=== PATIENT | male | born 1980 | race Caucasian/White ===

== ENCOUNTER 2019-10-04 13:19 | Emergency (ER) | payer OTHER ==
--- OUTSIDE RECORDS SUMMARY | 2019-10-04 13:22 | XMS REPORT | Encounter Summary ---
:1980 Author Reason for Visit problem visit Instructions 1. Atypical chest pain isosorbide mononitrate ER 30 mg tablet,extended release 24 hr cardiology referral - Patient is scheduled for today. CMP, serum or plasma CBC w/ auto diff lipid panel, serum TSH + free T4, serum electrocardiogram interpretation 2. Gastro-esophageal reflux disease with esophagitis omeprazole 40 mg capsule,delayed release Discussion Note Patient has a family history of coronary arterial disease and male one close relative that at the age of 60 from massive myocardial infarction. This patient does have symptoms of esophageal reflux along with the chest pain that can be with exertion or without. Especially noted hiking this past weekend patient had post sternal chest pain. For his reflux he takes [id number]-[id number] medications. A EKG today shows Q waves in 2 and aVF and also shows a slight fascicular block in 2 and aVF as well. Patient has never had a coronary work-up. He does have a history of hypertension that is been marginally controlled. The heart auscultation appeared normal, but because of these changes in his family history I would like him to have a cardiac work-up with Dr. Dinesh Parks. Patient educational handouts: No information available. Plan of Care Reminders Provider Appointments Hyg 6 Month Aure [facility] Recall 01/09/2020 4:00PM Lab CMP, Serum or [facility] Plasma 2019 CBC W/ Auto [facility] Diff 2019 Lipid Panel, [facility] Serum 2019 TSH + Free T4, [facility] Serum 2019 Referral Cardiology Dinesh Parks MD Referral 08/06/2019 Procedures None recorded. Surgeries None recorded. Imaging None recorded. Medications Name Start Date atorvastatin 20 mg tablet TAKE 1 TABLET BY ORAL ROUTE 1 DAILY Benicar 20 mg tablet Take 1 tablet every day by oral route. Bystolic 10 mg tablet Take 1 tablet every day by oral route. omeprazole 40 mg capsule,delayed release Take 1 capsule every day by oral route. Medications Administered None recorded. Vitals Height Weight BMI Blood Pressure 6 ft 1 in 293 lbs 38.7 kg/m2 136/78 mm[Hg] Lab Results None recorded. Allergies Code Code System Name Reaction Severity Status Onset NKDA Problems Name Status Onset Date Source Hyperlipidemia Active 04/18/2019 Hypertensive Disorder Active Procedures None recorded. Vaccine List Vaccine Type influenza, injectable, quadrivalent 06/06/2018 Social History Tobacco Smoking Status Never Smoker Past Encounters 08/06/2019 Atypical Chest Pain; Gastro-esophageal Reflux Disease with Esophagitis MARIA E Tinajero: [address], [place] [address], Ph. [phone] History of Present Illness Note: <p>This is a 8-year old male that presents with episodes of chest fullness and discomfort.. He has male family member that at age 60 from a myocardial infarction patient does have a hypertension hyperlipidemia. He has thought that this has been primarily reflux symptoms and has been taking dwpk-gsl-gchlcgb medicines for reflux. It is episodic it is not necessarily associated with activity although he was doing some hiking this past weekend and started having some chest discomfort.An EKG was taken during his exam today. The patient points directly to the mid sternal region as the area of his discomfort.
</p> Review of Systems None recorded. Physical Exam Brief Cardiology Exam Reported By: Patient Basic Cardio PE: General Appearance in NAD, normal general appearance, healthy weight, alert. HEENT: normal thyroid, no bruit, JVP < 6. Lungs: clear to auscultation. Cardio: s1 normal, s2 normal, no murmurs, no gallops, normal apical impulse. Extremities: no edema. Neurologic: no visual disturbances, no weakness in the extremities, no confusion
--- OUTSIDE RECORDS SUMMARY | 2019-10-04 13:22 | XMS REPORT | Encounter Summary ---
:1980 Author Reason for Visit None recorded. Instructions 1. Atypical chest pain isosorbide mononitrate ER 30 mg tablet,extended release 24 hr cardiology referral CMP, serum or plasma CBC w/ auto [...] chest pain. For his reflux he takes [id number]-[id number] medications. A EKG today shows Q waves [...] Provider Appointments Hyg 6 Month Aure [facility] Recall 01/09/2020 4:00PM Lab CMP, Serum or [facility] Plasma 08/06/2019 CBC W/ Auto [facility] Diff 08/06/2019 Lipid Panel, [facility] Serum 08/06/2019 TSH + Free T4, [facility] Serum 08/06/2019 Referral Cardiology Dinesh Parks MD Referral 08/06/2019 Procedures None recorded. Surgeries None recorded. Imaging None recorded. Medications Name Start Date atorvastatin 20 mg tablet TAKE 1 TABLET BY ORAL ROUTE 1 DAILY Benicar 20 mg tablet Take 1 tablet every day by oral route. isosorbide mononitrate ER 30 mg tablet,extended release 24 hr Take 1 tablet every day by oral route. omeprazole 40 mg capsule,delayed release Take 1 capsule every day by oral route. Medications Administered None recorded. Vitals None recorded. Lab Results None recorded. Allergies Code Code System Name Reaction Severity Status Onset NKDA Problems Name Status Onset Date Source Hyperlipidemia Active 04/18/2019 Hypertensive Disorder Active Procedures None recorded. Vaccine List Vaccine Type influenza, injectable, quadrivalent 06/06/2018 Social History Tobacco Smoking Status Never Smoker Past Encounters 08/06/2019 Atypical Chest Pain; Gastro-esophageal Reflux Disease with Esophagitis MARIA E Tinajero: [address], [place] [address], Ph. History of Present Illness Note: <p>This is a 8-year old male that presents with episodes of chest fullness and discomfort.. He has male family member that at age 60 from a myocardial infarction patient does have a hypertension hyperlipidemia. He has thought that this has been primarily reflux symptoms and has been taking qaif-vgr-jctwnfi medicines for reflux. It is episodic it [...]
--- OUTSIDE RECORDS SUMMARY | 2019-10-04 13:22 | XMS REPORT ---
:1980 [facility] Address [address] [place] [address] Care Team Providers Name Role Phone Unavailable Unavailable Unavailable Problems This patient has no known problems. Allergies, Adverse Reactions, Alerts This patient has no known allergies or adverse reactions. Medications This patient has no known medications. Encounters Start End Encounter Admission Attending Care Care Encounter Date/Time Date/Time Type Type Clinicians Facility Department ID 2019-09-17 Inpatient [facility] [id number] 05:20:00
[2019-10-04] MEDS ORDERED: Mastisol Adhesive Liq ONE (15:01)
--- NOTE | 2019-10-04 15:51 | ER ---
Nurse's Notes [facility] Name: Jenaro Singh Age: 39 yrs Sex: Male : 1980 Arrival Date: 10/04/2019 Time: 13:23 Bed 20 Private MD: Diagnosis: Persistent and recurrent bleeding from the superior aspect of sternal incision - resolved Presentation: 10/04 13:57 Presenting complaint: Had bicuspid valve replacement 09/17 at [facility], discharged 2 days hb ago, reports incision bleeding since yesterday. . Transition of care: patient was not received from another setting of care. Onset of symptoms was October 03, 2019. Risk Assessment: Do you want to hurt yourself or someone else? Patient reports no desire to harm self or others. Initial Sepsis Screen: Does the patient meet any 2 criteria? No. Patient's initial sepsis screen is negative. Does the patient have a suspected source of infection? No. Patient's initial sepsis screen is negative. Care prior to arrival: None. 13:57 Method Of Arrival: Ambulatory hb 13:57 Acuity: MIKE 3 hb Historical: - Allergies: 14:02 No Known Allergies; hb - Home Meds: 14:02 Coumadin 5 mg Oral tab 1 tab once daily [Active]; Zyrtec 10 mg Oral chew 1 tab once hb daily [Active]; aspirin 81 mg Oral chew 1 tab once daily [Active]; colchicine 0.6 mg Oral cap 1 cap once daily [Active]; atorvastatin 40 mg oral tab 1 tab once daily [Active]; enoxaparin 120 mg/0.8 mL subcutaneous syrg once daily [Active]; gabapentin 100 mg oral cap [Active]; metoprolol tartrate 50 mg Oral tab 1 tab 2 times per day [Active]; omeprazole 40 mg Oral cpDR 1 cap once daily [Active]; tramadol 50 mg Oral tab [Active]; - PMHx: 14:02 Hypertension; hb - PSHx: 14:02 Bicuspid Valve Replacement; hb - Immunization history:: Adult Immunizations up to date. - Social history:: Smoking status: Patient/guardian denies using tobacco. - Ebola Screening: : No symptoms or risks identified at this time. Screenin:21 Abuse screen: Denies threats or abuse. Nutritional screening: No deficits noted. em Tuberculosis screening: No symptoms or risk factors identified. Fall Risk None identified. Assessment: 14:22 General: Appears in no apparent distress. comfortable, Behavior is calm, cooperative, em Denies fever. Pain: Denies pain. Neuro: Level of Consciousness is awake, alert, obeys commands, Oriented to person, place, time, situation, Appropriate for age. Cardiovascular: Denies chest pain, palpitations, shortness of breath, Heart tones S1 S2 present Capillary refill < 3 seconds Patient's skin is warm and dry. Edema is absent. Respiratory: Airway is patent Respiratory effort is even, unlabored, Respiratory pattern is regular, symmetrical, Denies shortness of breath pain with respiration. Derm: Wound noted mid-sternal area Wound is surgical site wound, bloody drainage noted. Musculoskeletal: Capillary refill < 3 seconds, Range of motion: intact in all extremities. 14:30 Reassessment: I agree with previous assessment. hb 14:35 Reassessment: removed liquid bandage off incision site, small amount of bloody em drainage, provider notified, placed surgiseal with tape on site. 15:45 Reassessment: Patient appears in no apparent distress at this time. Patient and/or em family updated on plan of care and expected duration. Pain level reassessed. Patient is alert, oriented x 3, equal unlabored respirations, skin warm/dry/pink. applied Mastisol to skin, taped surgiseal with a 2 x 2 on incision per providers orders, no drainage noted. Vital Signs: 14:02 BP 134 / 87; Pulse 91; Resp 16; Temp 97.4; Pulse Ox 98% on R/A; Weight 122.92 kg; hb Height 6 ft. 2 in. (187.96 cm); Pain 1/; 14:02 Body Mass Index 34.79 (122.92 kg, 187.96 cm) hb ED Course: 13:23 Patient arrived in ED. cl3 13:59 Triage completed. hb 14:02 Arm band placed on. hb 14:05 Yang Glass LVN is Primary Nurse. em 14:07 Andrea Zhao MD is Attending Physician. kdr 14:21 Patient has correct armband on for positive identification. Placed in gown. Bed in low em position. Call light in reach. Adult w/ patient. 15:58 No provider procedures requiring assistance completed. Patient did not have IV access em during this emergency room visit. Administered Medications: No medications were administered Outcome: 15:49 Discharge ordered by . kdr 15:58 Discharged to home ambulatory, with family. em 15:58 Condition: good 15:58 Discharge instructions given to patient, family, Instructed on discharge instructions, follow up and referral plans. medication usage, wound care, Demonstrated understanding of instructions, follow-up care, medications, wound care. 16:03 Patient left the ED. em Signatures: Andrea Zhao MD MD kdr Yang Glass, SALES REPRESENTATIVE [employer] SALES REPRESENTATIVE [employer] em Brittany Mejia, RN RN Frannie Restrepo cl3
--- NOTE | 2019-10-04 15:51 | EDPHYS ---
Physician Documentation [facility] Name: Jenaro Singh Age: 39 yrs Sex: Male : 1980 Arrival Date: 10/04/2019 Time: 13:23 Bed 20 Private MD: ED Physician Andrea Zhao HPI: 10/04 18:09 This 39 yrs old Male presents to ER via Ambulatory with complaints of Post kdr Surgical Bleeding. 18:09 The patient was discharged from [facility] 2 day [facility] after having chest surgery - now has kdr bleeding to the upper aspect of the incision since yesterday. The patient is staking Plavix, aspiring and Lovenox . Onset: The symptoms/episode began/occurred gradually, yesterday. Severity of symptoms: At their worst the symptoms were very mild mild in the emergency department the symptoms are unchanged. The patient has not experienced similar symptoms in the past. The patient has been recently seen by a physician:. Historical: - Allergies: 14:02 No Known Allergies; hb - Home Meds: 14:02 Coumadin 5 mg Oral tab 1 tab once daily [Active]; Zyrtec 10 mg Oral chew 1 tab once hb daily [Active]; aspirin 81 mg Oral chew 1 tab once daily [Active]; colchicine 0.6 mg Oral cap 1 cap once daily [Active]; atorvastatin 40 mg oral tab 1 tab once daily [Active]; enoxaparin 120 mg/0.8 mL subcutaneous syrg once daily [Active]; gabapentin 100 mg oral cap [Active]; metoprolol tartrate 50 mg Oral tab 1 tab 2 times per day [Active]; omeprazole 40 mg Oral cpDR 1 cap once daily [Active]; tramadol 50 mg Oral tab [Active]; - PMHx: 14:02 Hypertension; hb - PSHx: 14:02 Bicuspid Valve Replacement; hb - Immunization history:: Adult Immunizations up to date. - Social history:: Smoking status: Patient/guardian denies using tobacco. - Ebola Screening: : No symptoms or risks identified at this time. ROS: 18:09 Constitutional: Negative for fever, chills, and weight loss. kdr 18:09 Cardiovascular: Positive for Healing incision that has a slow bleed from the upper 1.5 cm. Exam: 18:09 Constitutional: This is a well developed, well nourished patient who is awake, alert, kdr and in no acute distress. 18:09 Chest/axilla: Inspection: Vertical incision healing well - excepts of a slow dark red blood bleeding from the upper portion of the wound. Vital Signs: 14:02 BP 134 / 87; Pulse 91; Resp 16; Temp 97.4; Pulse Ox 98% on R/A; Weight 122.92 kg; hb Height 6 ft. 2 in. (187.96 cm); Pain /10; 14:02 Body Mass Index 34.79 (122.92 kg, 187.96 cm) hb MDM: 15:49 Patient medically screened. kdr 18:09 Data reviewed: vital signs, nurses notes, lab test result(s). Counseling: I had a kdr detailed discussion with the patient and/or guardian regarding: the historical points, exam findings, and any diagnostic results supporting the discharge/admit diagnosis, lab results, the need for outpatient follow up. Administered Medications: No medications were administered Disposition: 10/04/19 15:49 Discharged to Home. Impression: Persistent and recurrent bleeding from the superior aspect of sternal incision - resolved. - Condition is Stable. - Discharge Instructions: Wound Care. - Medication Reconciliation Form, Thank You Letter form. - Follow up: Private Physician; When: 2 - 3 days; Reason: If symptoms return, Further diagnostic work-up, Recheck today's complaints, Continuance of care, Re-evaluation by your physician. - Problem is an ongoing problem. - Symptoms have improved. Signatures: Andrea Zhao MD MD kdr Yang Glass, PARALLEL COMPUTING SOFTWARE ENGINEER PARALLEL COMPUTING SOFTWARE ENGINEER em Brittany Mejia, [place] RN Corrections: (The following items were deleted from the chart) 16:03 15:49 10/04/2019 15:49 Discharged to Home. Impression: Persistent and recurrent em bleeding from the superior aspect of sternal incision - resolved. Condition is Stable. Forms are Medication Reconciliation Form, Thank You Letter, Antibiotic Education, Prescription Opioid Use. Follow up: Private Physician; When: 2 - 3 days; Reason: If symptoms return, Further diagnostic work-up, Recheck today's complaints, Continuance of care, Re-evaluation by your physician. Problem is an ongoing problem. Symptoms have improved. kdr
[2019-10-04 21:02] VITALS: BP 134/87; TEMP 97.4; O2SAT 98
== END 2019-10-04 16:03 | disposition home or self-care (01) ==
LOC: ER 13:19
DX: L76.22 Postprocedural hemorrhage of skin and subcutaneous tissue following other procedure (principal); I10 Essential (primary) hypertension; Z95.4 Presence of other heart-valve replacement; Z79.01 Long term (current) use of anticoagulants; Z79.82 Long term (current) use of aspirin
CPT/HCPCS: 99281

== ENCOUNTER 2021-03-09 07:14 | Emergency (ER) | payer OTHER ==
--- OUTSIDE RECORDS SUMMARY | 2021-03-09 07:18 | XMS REPORT | Continuity of Care Document ---
:1980 Author Organization [facility] Address [address] [place] [address] Care Team Providers Name Role Phone HARJIT BROCK M.D. Attending Clinician Unavailable Problems Condition Condition Condition Status Onset Resolution Last Treating Co mments Source Name Details Category Date Date Treatment Clinician Date Vitamin D Vitamin D Problem Active 2019-11 [place] deficiency Deficiency 1-11 [facility] Long-term Long-term Problem Active [place] current Current 6-04 da use of Use of 00:00: [facility] anticoagul Anticoagul 00 al ant ant [facility] Outre[facility] Program Occult Occult Problem Active [place] blood in Blood in 4-03 da stools Stools 00:00: [facility] Aortic Aortic Problem Active 2018-11 [place] valve Valve 0-19 da regurgitat Regurgitat 00:00: [facility] ion ion [facility] al [facility] Left Left Problem Active 2018-11 [place] ventricula Ventricula 0-19 da r r 00:00: [facility] hypertroph Hypertroph 00 al y y [facility] Outre[facility] h Program Hyperlipid Hyperlipid Problem Active 2019 [place] emia emia 6-13 da 00:00: [facility] Hypertensi Hypertensi Problem Active [facility] ve ve da disorder Disorder [facility] Aortic Aortic Problem Active Univers insufficie insufficie it y of ncy due to [place] bicuspid bicuspid Physic i aortic aortic ans valve valve Allergies, Adverse Reactions, Alerts This patient has no known allergies or adverse reactions. Family History Family Member Diagnosis Comments Start Date Stop Date Source Grandmother Family history of [facility] [place] myocardial [facility] Ph[facility] uncle Family history of [facility] [place] myocardial infarction [facility] Social History Smoking Status Start Date Stop Date Source Never Smoker Chasity Navarro [facility] Outreach Program Medications Ordered Filled Start Stop Current Ordering Indication Dosage Frequency Signature Comments Components Source Medication Medication Date Date Medication? Clinician (SIG) Name Name Aspcarson Ec Asprin Ec No 1 Q1D Asprin Ec [place] Low Dose 81 Low Dose 81 Low Dose da mg mg 81 mg [facility] tablet,bridgette tablet,bridgette tablet,del al yed release yed release ayed H ealth Take 1 Take 1 release Outreac tablet tablet Take 1 h every day every day tablet Pro gram by oral by oral every day route. route. by oral route. atorvastati atorvastati No atorvastat [place] n 40 mg n 40 mg in 40 mg da tablet TAKE tablet TAKE tablet [facility] 1 TABLET BY 1 TABLET BY TAKE 1 al MOUTH AT MOUTH AT TABLET BY He alth BEDTIME BEDTIME MOUTH AT Outre ac BEDTIME h Program Bystolic 10 Bystolic 10 No Bystolic [place] mg tablet mg tablet 10 mg da TAKE 1/2 TAKE 1/2 tablet [facility] TABLET BY TABLET BY TAKE 1/2 a l MOUTH EVERY MOUTH EVERY TABLET BY Health DAY DAY MOUTH Outreac DIRECTED DIRECTED EVERY DAY h Program DIRECTED olmesartan olmesartan No olmesartan [place] 20 20 20 da mg-hydrochl mg-hydrochl mg-hydroch [facility] orothiazide orothiazide lorothiazi al 12.5 mg 12.5 mg de 12.5 mg Hea lth tablet TAKE tablet TAKE tablet Outreac 1 TABLET BY 1 TABLET BY TAKE 1 h MOUTH EVERY MOUTH EVERY TABLET BY Program DAY DAY MOUTH DIRECTED DIRECTED EVERY DAY DIRECTED Vitamin D3 Vitamin D3 No Vitamin D3 [place] 2000 u qd 2000 u qd 2000 u qd da [facility] warfarin 5 warfarin 5 No warfarin 5 [place] mg tablet mg tablet mg tablet da TAKE 1 TAKE 1 TAKE 1 [facility] TABLET BY TABLET BY TABLET BY al MOUTH TWICE MOUTH TWICE MOUTH Health DAILY DAILY TWICE Outreac DAILY h Program Atorvastati Atorvastati Yes M.A. U nivers n Calcium n Calcium ity o f TABS TABS [place] Physici ans Omeprazole Omeprazole Yes M.A. Uni vers 20 MG Oral 20 MG Oral ity of Capsule Capsule [place] Delayed Delayed Physici Release Release ans Bystolic Bystolic Yes M.A. Univers TABS TABS [facility] [place] Physici ans Benicar HCT Benicar HCT Yes M.A. U nivers TABS TABS [facility] [place] Physici ans Immunizations Ordered Immunization Filled Immunization Date Status Commen ts Source Name Name COVID-19, mRNA, COVID-19, mRNA, 2021-01-08 Completed Colbert erlin LNP-S, PF, 100 LNP-S, PF, 100 13:50:52 [facility] mcg/0.5 mL dose mcg/0.5 mL dose Outr each Program COVID-19, mRNA, COVID-19, mRNA, 2020-12-02 Completed Colbert erlin LNP-S, PF, 100 LNP-S, PF, 100 11:59:28 [facility] mcg/0.5 mL dose mcg/0.5 mL dose Outr each Program influenza, influenza, 2020-07-22 Completed [place] injectable, injectable, 00:00:00 [facility] quadrivalent quadrivalent Outreach P rogram Tdap Tdap 2019-11-28 Completed [place] 16:41:15 [facility] Progr am influenza, influenza, 2019-11-28 Completed [place] injectable, injectable, 15:55:00 [facility] quadrivalent, quadrivalent, Outreach Program preservative free preservative free influenza, influenza, 2018-06-06 Completed [place] injectable, injectable, 00:00:00 [facility] quadrivalent quadrivalent Outreach P rogram Vital Signs Vital Name Observation Time Observation Value Comments Source BP Diastolic 2021-01-21 00:00:00 67 mm[Hg] [place] [facility] Height 2021-01-21 00:00:00 73 [in_i] [place] [facility] BMI (Body Mass 2021-01-21 00:00:00 28.1 kg/m2 [facility] 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) [facility] BP Systolic 2021-01-21 00:00:00 102 mm[Hg] [place] [facility] Body Weight 2021-01-21 00:00:00 3408 [oz_av] [place] [facility] BP Diastolic 2020-10-21 00:00:00 68 mm[Hg] [place] [facility] Height 2020-10-21 00:00:00 73 [in_i] [place] [facility] BMI (Body Mass 2020-10-21 00:00:00 30.6 kg/m2 [place] 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) [facility] BP Systolic 2020-10-21 00:00:00 106 mm[Hg] [place] [facility] Body Weight 2020-10-21 00:00:00 3712 [oz_av] [place] [facility] BP Diastolic 2020-09-16 00:00:00 70 mm[Hg] [place] [facility] Height 2020-09-16 00:00:00 73 [in_i] [place] [facility] BMI (Body Mass 2020-09-16 00:00:00 32.6 kg/m2 [place] 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) [facility] BP Systolic 2020-09-16 00:00:00 109 mm[Hg] [place] [facility] Body Weight 2020-09-16 00:00:00 3952 [oz_av] [place] [facility] BP Diastolic 2020-04-09 00:00:00 74 mm[Hg] [place] [facility] Height 2020-04-09 00:00:00 73 [in_i] [place] [facility] BMI (Body Mass 2020-04-09 00:00:00 35.5 kg/m2 [place] 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) [facility] BP Systolic 2020-04-09 00:00:00 110 mm[Hg] [place] [facility] Body Weight 2020-04-09 00:00:00 4305.6 [oz_av] [place] 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 [facility] BP Diastolic 2020-03-05 00:00:00 84 mm[Hg] [place] [facility] Height 2020-03-05 00:00:00 73 [in_i] [place] [facility] BP Systolic 2020-03-05 00:00:00 130 mm[Hg] [place] [facility] Height 2020-02-13 00:00:00 73 [in_i] [place] [facility] BP Diastolic 2019-08-06 00:00:00 78 mm[Hg] [place] [facility] Height 2019-08-06 00:00:00 73 [in_i] [place] [facility] BMI (Body Mass 2019-08-06 00:00:00 38.7 kg/m2 [place] 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) [facility] BP Systolic 2019-08-06 00:00:00 136 mm[Hg] [place] [facility] Body Weight 2019-08-06 00:00:00 293 [lb_av] [place] [facility] BP Systolic 2019-09-11 14:28:00 101 mm[Hg] [facility] Phys[facility] BP Diastolic 2019-09-11 14:28:00 58 mm[Hg] [facility] Phys[facility] Height 2019-09-11 14:28:00 72 [in_us] [facility] [place] [facility] Weight 2019-09-11 14:28:00 277 [lb_av] [facility] Physician s Body Mass Index 2019-09-11 14:28:00 37.57 kg/m2 [facility] Temperature 2019-09-11 14:28:00 97 [degF] [facility] Phys[facility] Heart Rate 2019-09-11 14:28:00 59 /min [facility] Physician s Respiration Rate 2019-09-11 14:28:00 14 /min [facility] [place] Physician s O2 SAT 2019-09-11 14:28:00 98 % [facility] Physician s Procedures Procedure Date / Time Performing Clinician Source Performed Catheterization of Left 2019-09-17 00:00:00 Filemon kern [facility] Mechanical Prosthetic 2019-09-17 00:00:00 Stefany baptiste [facility] Aortic Valve Replacement Health Outreach Program Plan of Care Planned Activity Planned Date Details Comments Source Diagnostic Test 2021-01-21 PT/PTT, plasma [place] [facility] Pending 00:00:00 [code = PT/PTT, Health Outre ach plasma] Program Future Appointment 2021-04-22 Abril Shin [facility]ani 08:00:00 170Nayan Dennis; [place] Program [phone] Encounters Start End Encounter Admission Attending Care Care Encounter Source Date/Time Date/Time Type Type Clinicians Facility Department ID 2019-09-17 Inpatient [facility] [address] [facility] 05:20:00 2021-01-21 2021-01-21 Nicolette MICHELLE [place] - [id number] [place] 00:00:00 00:00:00 Chasity Cramer SORTER PACKER: [address] [facility] [place] 3 [place] [address] h , Ph. Program 2021-01-08 2021-01-08 Kandy MICHELLE [place] - [id number] M [place] 00:00:00 00:00:00 Chasity Porter MD: [address] [facility] - [place], [place], [place] Outreac [address] h , Ph. Program 2020-12-02 2020-12-02 Kandy MICHELLE [place] - [id number] M [place] 00:00:00 00:00:00 Chasity Porter MD: [address] [facility] - [place], [place], [place] Outreac [address] h , Ph. Program 2020-10-21 2020-10-21 Nicolette MICHELLE [place] - [id number] [place] 00:00:00 00:00:00 Chasity Cramer SORTER PACKER: [address] [facility] [address], [place], [place] Outreac [address] h , Ph. Program 2020-09-16 2020-09-16 Anoop Balderas [facility] [place] - [id number] [place] 00:00:00 00:00:00 MARIA E Jones: Chasity blackburn [address] [facility] [address], [place], [place] 3 [place] [address] h , Ph. Program 2020-04-09 2020-04-09 Nicolette Blackburn [facility] [place] - 4 [place] 00:00:00 00:00:00 Chasity Cramer SORTER PACKER: [address] [facility] [address], [place], [place] Outre [address] h , Ph. Program 2020-03-05 2020-03-05 Anoop Balderas [facility] [place] - [id number] [place] 00:00:00 00:00:00 MARIA E Jones: Chasity blackburn [address] [facility] al A, [facility] [place], [place] [address] Fatuma , Ph. 2020-02-13 2020-02-13 Flaquitoraza Cheathamn [facility] [place] - 9 [place] 00:00:00 00:00:00 Chasity Ruano MD: [address] [address] HOP - [facility] [address] [place] Program [address] , Ph. 2019-09-11 2019-09-11 MORRO Bean [facility] [id number] [facility] 13:00:00 13:00:00 t; kami LOMBARDI & it y [place] [facility] [place] , [place] - Physic i HARJIT Tran. Stanley bro M.D. 2019-08-06 2019-08-06 Anoop MICHELLE [place] - [id number] [place] 00:00:00 00:00:00 MARIA E Jones: Chasity blackburn [address] [address] [facility] [address], [facility] Medical [facility] 3, [place] 3 [facility] [address] [facility] am , Ph. Results Test Description Test Time Test Comments Results Result Comments Source PT and aPTT panel - Platelet poor plasma by Coagulatio n assay 2021-01-21 00:00:00 Test Item Value Reference Range Interpretation Comme nts INR in Platelet poor plasma by Coagulation assay (test code = 2.6 0.9-1.2 H 6301-6) Prothrombin time (PT) (test code = 5902-2) 25.8 sec 9.1-12.0 H aPTT in Platelet poor plasma by Coagulation assay (test code = 37 s ec 24-33 H 96007-3) [facility] Outreach ProgramPT and aPTT panel - Platelet poor plasma by Coagulation [id number] 00:00:00 Test Item Value Reference Range Interpretation Comments INR in Platelet poor plasma by 2.6 0.9-1.2 H Coagulation assay (test code = 6301-6) Prothrombin time (PT) (test code = 25.8 sec 9.1-12.0 H 5902-2) aPTT in Platelet poor plasma by 37 sec 24-33 H Coagulation assay (test code = 83533-9) [facility] Outreach ProgramPT and aPTT panel - Platelet poor plasma by Coagulation [id number] 00:00:00 Test Item Value Reference Range Interpretation Comments INR in Platelet poor plasma by 1.7 0.9-1.2 H Coagulation assay (test code = 6301-6) Prothrombin time (PT) (test code = 16.9 sec 9.1-12.0 H 5902-2) aPTT in Platelet poor plasma by 32 sec 24-33 Coagulation assay (test code = 96713-0) [facility] Outreach ProgramPT and aPTT panel - Platelet poor plasma by Coagulation [id number] 00:00:00 Test Item Value Reference Range Interpretation Comments INR in Platelet poor plasma by 1.7 0.9-1.2 H Coagulation assay (test code = 6301-6) Prothrombin time (PT) (test code = 16.9 sec 9.1-12.0 H 5902-2) aPTT in Platelet poor plasma by 32 sec 24-33 Coagulation assay (test code = 69987-1) [facility] ProgramPT and aPTT panel - Platelet poor plasma by Coagulation [id number] 00:00:00 Test Item Value Reference Range Interpretation Comments INR in Platelet poor plasma by 1.7 0.9-1.2 H Coagulation assay (test code = 6301-6) Prothrombin time (PT) (test code = 16.9 sec 9.1-12.0 H 5902-2) aPTT in Platelet poor plasma by 32 sec 24-33 Coagulation assay (test code = 01056-2) [facility] - Platelet poor plasma by Coagulation [id number] 00:00:00 Test Item Value Reference Range Interpretation Comments INR in Platelet poor plasma by 1.9 0.9-1.2 H Coagulation assay (test code = 6301-6) Prothrombin time (PT) (test code = 18.7 sec 9.1-12.0 H 5902-2) aPTT in Platelet poor plasma by 34 sec 24-33 H Coagulation assay (test code = 02080-4) [facility] - Platelet poor plasma by Coagulation [id number] 00:00:00 Test Item Value Reference Range Interpretation Comments INR in Platelet poor plasma by 1.5 0.9-1.2 H Coagulation assay (test code = 6301-6) Prothrombin time (PT) (test code = 15.0 sec 9.1-12.0 H 5902-2) aPTT in Platelet poor plasma by 30 sec 24-33 Coagulation assay (test code = 93306-4) [facility] ProgramFree T4 and TSH panel - Serum or [id number] 00:00:00 Test Item Value Reference Range Interpretation Comments Thyrotropin [Units/volume] in 1.670 uIU/mL 0.450-4.500 Serum or Plasma by Detection limit <= 0.005 mIU/L (test code = 94684-2) Thyroxine (T4) free 1.39 NG/dL 0.82-1.77 [Mass/volume] in Serum or Plasma (test code = 3024-7) [facility] Auto Differential panel - Blood 2020-09-25 00:00:00 Test Item Value Reference Range Interpretation Comments Leukocytes [#/volume] in Blood 9.5 x10e3/uL 3.4-10.8 by Automated count (test code = 6690-2) Erythrocytes [#/volume] in 4.60 x10e6/uL 4.14-5.80 Blood by Automated count (test code = 789-8) Hemoglobin [Mass/volume] in 13.8 g/dL 13.0-17.7 Blood (test code = 718-7) Hematocrit [Volume Fraction] of 41.3 % 37.5-51.0 Blood by Automated count (test code = 4544-3) MCV [Entitic volume] by 90 fL 79-97 Automated count (test code = 787-2) MCH [Entitic mass] by Automated 30.0 pg 26.6-33.0 count (test code = 785-6) MCHC [Mass/volume] by Automated 33.4 g/dL 31.5-35.7 count (test code = 786-4) Erythrocyte distribution width 14.2 % 11.6-15.4 [Ratio] by Automated count (test code = 788-0) Platelets [#/volume] in Blood 214 x10e3/uL 150-450 by Automated count (test code = 777-3) Neutrophils/100 leukocytes in 73 % not estab. Blood by Automated count (test code = 770-8) Lymphocytes/100 leukocytes in 18 % not estab. Blood by Automated count (test code = 736-9) Monocytes/100 leukocytes in 8 % not estab. Blood by Automated count (test code = 5905-5) Eosinophils/100 leukocytes in 1 % not estab. Blood by Automated count (test code = 713-8) Basophils/100 leukocytes in 0 % not estab. Blood by Automated count (test code = 706-2) immature cells (test code = senior production manager immature cells) Neutrophils [#/volume] in Blood 6.8 x10e3/uL 1.4-7.0 by Automated count (test code = 751-8) Lymphocytes [#/volume] in Blood 1.7 x10e3/uL 0.7-3.1 by Automated count (test code = 731-0) Monocytes [#/volume] in Blood 0.8 x10e3/uL 0.1-0.9 by Automated count (test code = 742-7) Eosinophils [#/volume] in Blood 0.1 x10e3/uL 0.0-0.4 by Automated count (test code = 711-2) Basophils [#/volume] in Blood 0.0 x10e3/uL 0.0-0.2 by Automated count (test code = 704-7) Immature granulocytes/100 0 % not estab. leukocytes in Blood by Automated count (test code = 53242-4) Immature granulocytes 0.0 x10e3/uL 0.0-0.1 [#/volume] in Blood by Automated count (test code = 81313-6) Nucleated erythrocytes/100 senior production manager leukocytes [Ratio] in Blood by Automated count (test code = 09471-0) Morphology [Interpretation] in senior production manager Blood Narrative (test code = 17844-9) [facility] Outreach ProgramComprehensive metabolic 2000 panel - Serum or [id number] 00:00:00 Test Item Value Reference Range Interpretation Comments Glucose [Mass/volume] in 85 mg/dL 65-99 Serum or Plasma (test code = 2345-7) Urea nitrogen [Mass/volume] 16 mg/dL 6-24 in Serum or Plasma (test code = 3094-0) Creatinine [Mass/volume] in 1.05 mg/dL 0.76-1.27 Serum or Plasma (test code = 2160-0) Glomerular filtration 88 mL/min/1.73 >59 rate/1.73 sq M.predicted among non-blacks [Volume Rate/Area] in Serum, Plasma or Blood by Creatinine-based formula (CKD-EPI) (test code = 96553-7) Glomerular filtration 101 mL/min/1.73 >59 rate/1.73 sq M.predicted among blacks [Volume Rate/Area] in Serum, Plasma or Blood by Creatinine-based formula (CKD-EPI) (test code = 88432-1) Urea nitrogen/Creatinine 15 9-20 [Mass Ratio] in Serum or Plasma (test code = 3097-3) Sodium [Moles/volume] in 142 mmol/L 134-144 Serum or Plasma (test code = 2951-2) Potassium [Moles/volume] in 3.7 mmol/L 3.5-5.2 Serum or Plasma (test code = 2823-3) Chloride [Moles/volume] in 101 mmol/L 96-106 Serum or Plasma (test code = 5-0) Carbon dioxide, total 25 mmol/L 20-29 [Moles/volume] in Serum or Plasma (test code = 2027-9) Calcium [Mass/volume] in 9.3 mg/dL 8.7-10.2 Serum or Plasma (test code = 94111-4) Protein [Mass/volume] in 6.9 g/dL 6.0-8.5 Serum or Plasma (test code = 2885-2) Albumin [Mass/volume] in 4.7 g/dL 4.0-5.0 Serum or Plasma (test code = 1751-7) Globulin [Mass/volume] in 2.2 g/dL 1.5-4.5 Serum by calculation (test code = 79079-6) Albumin/Globulin [Mass Ratio] 2.1 1.2-2.2 in Serum or Plasma (test code = 1759-0) Bilirubin.total [Mass/volume] 1.1 mg/dL 0.0-1.2 in Serum or Plasma (test code = 1974-2) Alkaline phosphatase 111 IU/L 39-117 [Enzymatic activity/volume] in Serum or Plasma (test code = 6768-6) Aspartate aminotransferase 20 IU/L 0-40 [Enzymatic activity/volume] in Serum or Plasma (test code = 1920-8) Alanine aminotransferase 21 IU/L 0-44 [Enzymatic activity/volume] in Serum or Plasma (test code = 1742-6) [facility] - [facility] or Plasma 2020-09-25 00:00:00 Test Item Value Reference Range Interpretation Comments Cholesterol [Mass/volume] in Serum 121 mg/dL 100-199 or Plasma (test code = 2093-3) Triglyceride [Mass/volume] in Serum 94 mg/dL 0-149 or Plasma (test code = 2571-8) Cholesterol in HDL [Mass/volume] in 39 mg/dL >39 L Serum or Plasma (test code = 2085-9) Cholesterol in VLDL [Mass/volume] 18 mg/dL 5-40 in Serum or Plasma by calculation (test code = 20133-3) Cholesterol in LDL [Mass/volume] in 64 mg/dL 0-99 Serum or Plasma by calculation (test code = 21421-0) Laboratory comment [Text] in Report senior production manager Narrative (test code = 00421-1) [facility] Outreach ProgramPT and aPTT panel - Platelet poor plasma by Coagulation [id number] 00:00:00 Test Item Value Reference Range Interpretation Comments INR in Platelet poor plasma by 2.2 0.9-1.2 H Coagulation assay (test code = 6301-6) Prothrombin time (PT) (test code = 21.8 sec 9.1-12.0 H 5902-2) aPTT in Platelet poor plasma by 36 sec 24-33 H Coagulation assay (test code = 45024-9) [facility]-Hydroxyvitamin D3+25- Hydroxyvitamin D2 [Mass/volume] in Serum or [id number] 00:00:00 Test Item Value Reference Range Interpretation Comments 25-Hydroxyvitamin 47.9 NG/mL 30.0-100.0 D3+25-Hydroxyvitamin D2 [Mass/volume] in Serum or Plasma (test code = 98224-5) [facility], [id number] 00:00:00 Test Item Value Reference Range Interpretation Comments interpretation (test code = note interpretation) pdf (test code = pdf) . [facility] ProgramPT and aPTT panel - Platelet poor plasma by Coagulation [id number] 00:00:00 Test Item Value Reference Range Interpretation Comments INR in Platelet poor plasma by 2.7 0.9-1.2 H Coagulation assay (test code = 6301-6) Prothrombin time (PT) (test code = 26.9 sec 9.1-12.0 H 5902-2) aPTT in Platelet poor plasma by 38 sec 24-33 H Coagulation assay (test code = 78487-6) [facility] ProgramPT and aPTT panel - Platelet poor plasma by Coagulation [id number] 00:00:00 Test Item Value Reference Range Interpretation Comments INR in Platelet poor plasma by 3.2 0.9-1.2 H Coagulation assay (test code = 6301-6) Prothrombin time (PT) (test code = 31.0 sec 9.1-12.0 H 5902-2) aPTT in Platelet poor plasma by 41 sec 24-33 H Coagulation assay (test code = 31838-6) [facility] ProgramPT and aPTT panel - Platelet poor plasma by Coagulation [id number] 00:00:00 Test Item Value Reference Range Interpretation Comments INR in Platelet poor plasma by 2.1 0.8-1.2 H Coagulation assay (test code = 6301-6) Prothrombin time (PT) (test code = 20.9 sec 9.1-12.0 H 5902-2) aPTT in Platelet poor plasma by 37 sec 24-33 H Coagulation assay (test code = 69439-7) [facility] ProgramPT and aPTT panel - Platelet poor plasma by Coagulation [id number] 00:00:00 Test Item Value Reference Range Interpretation Comments INR in Platelet poor plasma by 1.9 0.8-1.2 H Coagulation assay (test code = 6301-6) Prothrombin time (PT) (test code = 19.2 sec 9.1-12.0 H 5902-2) aPTT in Platelet poor plasma by 35 sec 24-33 H Coagulation assay (test code = 94752-4) [facility] occult blood, [id number] 16:02:00 Test Item Value Reference Range Interpretation Comments Occult Blood (test code = Occult positive Blood) [facility] Center[facility] blood, [id number] 16:02:00 Test Item Value Reference Range Interpretation Comments Occult Blood (test code = Occult positive Blood) [facility], [id number] 16:02:00 Test Item Value Reference Range Interpretation Comments Occult Blood (test code = Occult positive Blood) [facility] ProgramPT and aPTT panel - Platelet poor plasma by Coagulation [id number] 00:00:00 Test Item Value Reference Range Interpretation Comments INR in Platelet poor plasma by 2.0 0.8-1.2 H Coagulation assay (test code = 6301-6) Prothrombin time (PT) (test code = 20.4 sec 9.1-12.0 H 5902-2) aPTT in Platelet poor plasma by 34 sec 24-33 H Coagulation assay (test code = 67435-5) [facility] total [facility] [Mass/volume] - Serum or [id number] 00:00:00 Test Item Value Reference Range Interpretation Comments Testosterone [Mass/volume] in 245 NG/dL 264-916 L Serum or Plasma (test code = 2986-8) Testosterone Free [Mass/volume] in 13.1 pg/mL 6.8-21.5 Serum or Plasma (test code = 2991-8) [facility]25-Hydroxyvitamin D2+25- Hydroxyvitamin D3 [Mass/volume] in Serum or [id number] 00:00:00 Test Item Value Reference Range Interpretation Comments 25-Hydroxyvitamin 26.9 NG/mL 30.0-100.0 L D2+25-Hydroxyvitamin D3 [Mass/volume] in Serum or Plasma (test code = 71410-6) [facility] Auto Differential panel - Blood 2020-02-01 00:00:00 Test Item Value Reference Range Interpretation Comments Leukocytes [#/volume] in Blood 8.0 x10e3/uL 3.4-10.8 by Automated count (test code = 6690-2) Erythrocytes [#/volume] in 4.52 x10e6/uL 4.14-5.80 Blood by Automated count (test code = 789-8) Hemoglobin [Mass/volume] in 12.5 g/dL 13.0-17.7 L Blood (test code = 718-7) Hematocrit [Volume Fraction] of 39.4 % 37.5-51.0 Blood by Automated count (test code = 4544-3) Erythrocyte mean corpuscular 87 fL 79-97 volume [Entitic volume] by Automated count (test code = 787-2) Erythrocyte mean corpuscular 27.7 pg 26.6-33.0 hemoglobin [Entitic mass] by Automated count (test code = 785-6) Erythrocyte mean corpuscular 31.7 g/dL 31.5-35.7 hemoglobin concentration [Mass/volume] by Automated count (test code = 786-4) Erythrocyte distribution width 15.9 % 11.6-15.4 H [Ratio] by Automated count (test code = 788-0) Platelets [#/volume] in Blood 204 x10e3/uL 150-450 by Automated count (test code = 777-3) Neutrophils/100 leukocytes in 64 % not estab. Blood by Automated count (test code = 770-8) Lymphocytes/100 leukocytes in 23 % not estab. Blood by Automated count (test code = 736-9) Monocytes/100 leukocytes in 10 % not estab. Blood by Automated count (test code = 5905-5) Eosinophils/100 leukocytes in 3 % not estab. Blood by Automated count (test code = 713-8) Basophils/100 leukocytes in 0 % not estab. Blood by Automated count (test code = 706-2) immature cells (test code = senior production manager immature cells) Neutrophils [#/volume] in Blood 5.1 x10e3/uL 1.4-7.0 by Automated count (test code = 751-8) Lymphocytes [#/volume] in Blood 1.9 x10e3/uL 0.7-3.1 by Automated count (test code = 731-0) Monocytes [#/volume] in Blood 0.8 x10e3/uL 0.1-0.9 by Automated count (test code = 742-7) Eosinophils [#/volume] in Blood 0.2 x10e3/uL 0.0-0.4 by Automated count (test code = 711-2) Basophils [#/volume] in Blood 0.0 x10e3/uL 0.0-0.2 by Automated count (test code = 704-7) immature granulocytes (test 0 % not estab. code = immature granulocytes) Immature granulocytes 0.0 x10e3/uL 0.0-0.1 [#/volume] in Blood by Automated count (test code = 40325-1) Nucleated erythrocytes/100 senior production manager leukocytes [Ratio] in Blood by Automated count (test code = 08729-0) Morphology [Interpretation] in senior production manager Blood Narrative (test code = 08821-7) [facility] CenterCom[facility] 2000 panel - Serum or [id number] 00:00:00 Test Item Value Reference Range Interpretation Comments Glucose [Mass/volume] in 98 mg/dL 65-99 Serum or Plasma (test code = 2345-7) Urea nitrogen [Mass/volume] 16 mg/dL 6-24 in Serum or Plasma (test code = 3094-0) Creatinine [Mass/volume] in 0.91 mg/dL 0.76-1.27 Serum or Plasma (test code = 2160-0) eGFR if nonafricn AM (test 105 mL/min/1.73 >59 code = eGFR if nonafricn AM) eGFR if africn AM (test code 121 mL/min/1.73 >59 = eGFR if africn AM) Urea nitrogen/Creatinine 18 9-20 [Mass Ratio] in Serum or Plasma (test code = 3097-3) Sodium [Moles/volume] in 141 mmol/L 134-144 Serum or Plasma (test code = 2951-2) Potassium [Moles/volume] in 4.1 mmol/L 3.5-5.2 Serum or Plasma (test code = 2823-3) Chloride [Moles/volume] in 100 mmol/L 96-106 Serum or Plasma (test code = 2075-0) Carbon dioxide, total 26 mmol/L 20-29 [Moles/volume] in Serum or Plasma (test code = 2027-9) Calcium [Mass/volume] in 9.0 mg/dL 8.7-10.2 Serum or Plasma (test code = 87481-3) Protein [Mass/volume] in 6.6 g/dL 6.0-8.5 Serum or Plasma (test code = 2885-2) Albumin [Mass/volume] in 4.3 g/dL 4.0-5.0 Serum or Plasma (test code = 1751-7) Globulin [Mass/volume] in 2.3 g/dL 1.5-4.5 Serum by calculation (test code = 15076-9) Albumin/Globulin [Mass Ratio] 1.9 1.2-2.2 in Serum or Plasma (test code = 1759-0) Bilirubin.total [Mass/volume] 0.5 mg/dL 0.0-1.2 in Serum or Plasma (test code = 1975-2) Alkaline phosphatase 82 IU/L 39-117 [Enzymatic activity/volume] in Serum or Plasma (test code = 6768-6) Aspartate aminotransferase 27 IU/L 0-40 [Enzymatic activity/volume] in Serum or Plasma (test code = 1920-8) Alanine aminotransferase 36 IU/L 0-44 [Enzymatic activity/volume] in Serum or Plasma (test code = 1742-6) [facility] CenterPT and aPTT panel - Platelet poor plasma by Coagulation [id number] 00:00:00 Test Item Value Reference Range Interpretation Comments INR in Platelet poor plasma by 2.0 0.8-1.2 H Coagulation assay (test code = 6301-6) Prothrombin time (PT) (test code = 20.4 sec 9.1-12.0 H 5902-2) aPTT in Platelet poor plasma by 34 sec 24-33 H Coagulation assay (test code = 78772-8) [facility] CenterTestosterone free and total panel [Mass/volume] - Serum or [id number] 00:00:00 Test Item Value Reference Range Interpretation Comments Testosterone [Mass/volume] in 245 NG/dL 264-916 L Serum or Plasma (test code = 2986-8) Testosterone Free [Mass/volume] in 13.1 pg/mL 6.8-21.5 Serum or Plasma (test code = 2991-8) [facility]25-Hydroxyvitamin D2+25- Hydroxyvitamin D3 [Mass/volume] in Serum or [id number] 00:00:00 Test Item Value Reference Range Interpretation Comments 25-Hydroxyvitamin 26.9 NG/mL 30.0-100.0 L D2+25-Hydroxyvitamin D3 [Mass/volume] in Serum or Plasma (test code = 19056-3) [facility] Auto Differential panel - Blood 2020-02-01 00:00:00 Test Item Value Reference Range Interpretation Comments Leukocytes [#/volume] in Blood 8.0 x10e3/uL 3.4-10.8 by Automated count (test code = 6690-2) Erythrocytes [#/volume] in 4.52 x10e6/uL 4.14-5.80 Blood by Automated count (test code = 789-8) Hemoglobin [Mass/volume] in 12.5 g/dL 13.0-17.7 L Blood (test code = 718-7) Hematocrit [Volume Fraction] of 39.4 % 37.5-51.0 Blood by Automated count (test code = 4544-3) Erythrocyte mean corpuscular 87 fL 79-97 volume [Entitic volume] by Automated count (test code = 787-2) Erythrocyte mean corpuscular 27.7 pg 26.6-33.0 hemoglobin [Entitic mass] by Automated count (test code = 785-6) Erythrocyte mean corpuscular 31.7 g/dL 31.5-35.7 hemoglobin concentration [Mass/volume] by Automated count (test code = 786-4) Erythrocyte distribution width 15.9 % 11.6-15.4 H [Ratio] by Automated count (test code = 788-0) Platelets [#/volume] in Blood 204 x10e3/uL 150-450 by Automated count (test code = 777-3) Neutrophils/100 leukocytes in 64 % not estab. Blood by Automated count (test code = 770-8) Lymphocytes/100 leukocytes in 23 % not estab. Blood by Automated count (test code = 736-9) Monocytes/100 leukocytes in 10 % not estab. Blood by Automated count (test code = 5905-5) Eosinophils/100 leukocytes in 3 % not estab. Blood by Automated count (test code = 713-8) Basophils/100 leukocytes in 0 % not estab. Blood by Automated count (test code = 706-2) immature cells (test code = senior production manager immature cells) Neutrophils [#/volume] in Blood 5.1 x10e3/uL 1.4-7.0 by Automated count (test code = 751-8) Lymphocytes [#/volume] in Blood 1.9 x10e3/uL 0.7-3.1 by Automated count (test code = 731-0) Monocytes [#/volume] in Blood 0.8 x10e3/uL 0.1-0.9 by Automated count (test code = 742-7) Eosinophils [#/volume] in Blood 0.2 x10e3/uL 0.0-0.4 by Automated count (test code = 711-2) Basophils [#/volume] in Blood 0.0 x10e3/uL 0.0-0.2 by Automated count (test code = 704-7) immature granulocytes (test 0 % not estab. code = immature granulocytes) Immature granulocytes 0.0 x10e3/uL 0.0-0.1 [#/volume] in Blood by Automated count (test code = 12432-5) Nucleated erythrocytes/100 senior production manager leukocytes [Ratio] in Blood by Automated count (test code = 76441-2) Morphology [Interpretation] in senior production manager Blood Narrative (test code = 51518-0) [facility] CenterCom[facility] 2000 panel - Serum or [id number] 00:00:00 Test Item Value Reference Range Interpretation Comments Glucose [Mass/volume] in 98 mg/dL 65-99 Serum or Plasma (test code = 2345-7) Urea nitrogen [Mass/volume] 16 mg/dL 6-24 in Serum or Plasma (test code = 3094-0) Creatinine [Mass/volume] in 0.91 mg/dL 0.76-1.27 Serum or Plasma (test code = 2160-0) eGFR if nonafricn AM (test 105 mL/min/1.73 >59 code = eGFR if nonafricn AM) eGFR if africn AM (test code 121 mL/min/1.73 >59 = eGFR if africn AM) Urea nitrogen/Creatinine 18 9-20 [Mass Ratio] in Serum or Plasma (test code = 3097-3) Sodium [Moles/volume] in 141 mmol/L 134-144 Serum or Plasma (test code = 2951-2) Potassium [Moles/volume] in 4.1 mmol/L 3.5-5.2 Serum or Plasma (test code = 2823-3) Chloride [Moles/volume] in 100 mmol/L 96-106 Serum or Plasma (test code = 2075-0) Carbon dioxide, total 26 mmol/L 20-29 [Moles/volume] in Serum or Plasma (test code = 2027-9) Calcium [Mass/volume] in 9.0 mg/dL 8.7-10.2 Serum or Plasma (test code = 72513-6) Protein [Mass/volume] in 6.6 g/dL 6.0-8.5 Serum or Plasma (test code = 2885-2) Albumin [Mass/volume] in 4.3 g/dL 4.0-5.0 Serum or Plasma (test code = 1751-7) Globulin [Mass/volume] in 2.3 g/dL 1.5-4.5 Serum by calculation (test code = 17911-7) Albumin/Globulin [Mass Ratio] 1.9 1.2-2.2 in Serum or Plasma (test code = 1759-0) Bilirubin.total [Mass/volume] 0.5 mg/dL 0.0-1.2 in Serum or Plasma (test code = 1975-2) Alkaline phosphatase 82 IU/L 39-117 [Enzymatic activity/volume] in Serum or Plasma (test code = 6768-6) Aspartate aminotransferase 27 IU/L 0-40 [Enzymatic activity/volume] in Serum or Plasma (test code = 1920-8) Alanine aminotransferase 36 IU/L 0-44 [Enzymatic activity/volume] in Serum or Plasma (test code = 1742-6) [facility]
--- NOTE | 2021-03-09 07:50 | ER ---
Nurse's Notes [facility] Name: Jenaro Singh Age: 40 yrs Sex: Male : 1980 Arrival Date: 03/09/2021 Time: 07:15 Bed 13 Private MD: Diagnosis: Spontaneous bleeding from scrotum Presentation: 03/09 07:19 Chief complaint: Patient states: i took a shower this morning and when i dried myself tw2 off there was blood everywhere, i am on blood thinners. i dont know if there is a cut there or a pulled hair. i had heart sx. 2012. Coronavirus screen: At this time, the client does not indicate any symptoms associated with coronavirus-19. Ebola Screen: Patient denies travel to an Ebola-affected area in the 21 days before illness onset. Initial Sepsis Screen: Does the patient meet any 2 criteria? No. Patient's initial sepsis screen is negative. Does the patient have a suspected source of infection? No. Patient's initial sepsis screen is negative. Risk Assessment: Do you want to hurt yourself or someone else? Patient reports no desire to harm self or others. Onset of symptoms. 07:19 Method Of Arrival: Ambulatory tw2 07:19 Acuity: MIKE 3 tw2 Triage Assessment: 07:23 General: Appears in no apparent distress. uncomfortable, well groomed, Behavior is tw2 calm, cooperative, appropriate for age. Pain: Complains of pain in left testicle. : Reports bleeding from left testicle. Historical: - Allergies: 07:23 No Known Allergies; tw2 - Home Meds: 07:23 aspirin 81 mg Oral chew 1 tab once daily [Active]; Bystolic 5 mg oral tab 1 tab once tw2 daily [Active]; benicar hztz 20/12.5 mg once a day [Active]; omeprazole 20 mg Oral cpDR 1 cap once daily [Active]; Lipitor 20 mg Oral tab 1 tab once daily [Active]; Zyrtec 10 mg Oral chew 1 tab once daily [Active]; Coumadin 7.5 mg oral tab 1 tab once daily [Active]; - PMHx: 07:23 Hypertension; GERD; tw2 - PSHx: 07:23 Bicuspid Valve Replacement; tw2 - Immunization history:: Adult Immunizations. - Social history:: Smoking status: Patient denies any tobacco usage or history of. - Family history:: not pertinent. - Hospitalizations: : No recent hospitalization is reported. Screenin:30 Abuse screen: Denies threats or abuse. Nutritional screening: No deficits noted. tw2 Tuberculosis screening: No symptoms or risk factors identified. Fall Risk None identified. Assessment: 07:28 Reassessment: HI Villaseñor served as smooth stucco resurfacer for examination of testicles, no bleeding tw2 noted, pt states "i think it may have stopped", on left testicle 2 small pinpoint red spots noted for what appeared to be the bleeding sites, pt nad, pt given dry gauze for coverage, pt in gown and blanket for privacy as sister is at bedside. General: Appears in no apparent distress. slender, unkempt, Behavior is calm, cooperative, appropriate for age. Respiratory: Airway is patent Respiratory effort is even, unlabored, Respiratory pattern is regular, symmetrical. Musculoskeletal: Range of motion: intact in all extremities. 07:57 Reassessment: Patient appears in no apparent distress at this time. No changes from tw2 previously documented assessment. Patient and/or family updated on plan of care and expected duration. Pain level reassessed. Patient is alert, oriented x 3, equal unlabored respirations, skin warm/dry/pink. Vital Signs: 07:19 Pulse 64; Resp 17; Temp 97.9; Pulse Ox 100% on R/A; Weight 92.99 kg; Height 6 ft. 1 in. tw2 (185.42 cm); Pain 2/10; 07:24 BP 109 / 70; tw2 07:19 Body Mass Index 27.05 (92.99 kg, 185.42 cm) tw2 ED Course: 07:15 Patient arrived in ED. ds1 07:21 Triage completed. tw2 07:23 Arm band placed on. tw2 07:25 Bed in low position. Call light in reach. Pulse ox on. NIBP on. Warm blanket given. tw2 07:27 Yang Glass, [place] is Primary Nurse. em 07:40 Duane James MD is Attending Physician. rn 07:56 Primary Nurse role handed off by Yang Glass RN tw2 07:56 Christelle Rosales RN is Primary Nurse. tw2 07:57 No provider procedures requiring assistance completed. Patient did not have IV access tw2 during this emergency room visit. Administered Medications: No medications were administered Outcome: 07:50 Discharge ordered by . rn 07:57 Discharged to home ambulatory. tw2 07:57 Condition: stable 07:57 Discharge instructions given to patient, Instructed on discharge instructions, follow up and referral plans. Demonstrated understanding of instructions, follow-up care. 07:58 Patient left the ED. tw2 Signatures: Yang Glass RN Adelina Foss ds1 Duane James MD MD rn Wise, Tara, RN RN tw2
--- NOTE | 2021-03-09 07:50 | EDPHYS ---
Physician Documentation [facility] Name: Jenaro Singh Age: 40 yrs Sex: Male : 1980 Arrival Date: 03/09/2021 Time: 07:15 Bed 13 Private MD: ED Physician Duane James HPI: 03/09 07:41 This 40 yrs old Male presents to ER via Ambulatory with complaints of rn Testicular Problem - Bleeding. 07:41 The patient presents with scrotal bleeding. Onset: The symptoms/episode began/occurred rn just prior to arrival. Modifying factors: The symptoms are alleviated by nothing, the symptoms are aggravated by nothing. Severity of symptoms: At their worst the symptoms were moderate, in the emergency department the symptoms have resolved. The patient has not experienced similar symptoms in the past. 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 Drying off after shower, noticed blood on scrotum, mild to moderate amount. Stopped on way here. . Historical: - Allergies: 07:23 No Known Allergies; tw2 - Home Meds: 07:23 aspirin 81 mg Oral chew 1 tab once daily [Active]; Bystolic 5 mg oral tab 1 tab once tw2 daily [Active]; benicar hztz 20/12.5 mg once a day [Active]; omeprazole 20 mg Oral cpDR 1 cap once daily [Active]; Lipitor 20 mg Oral tab 1 tab once daily [Active]; Zyrtec 10 mg Oral chew 1 tab once daily [Active]; Coumadin 7.5 mg oral tab 1 tab once daily [Active]; - PMHx: 07:23 Hypertension; GERD; tw2 - PSHx: 07:23 Bicuspid Valve Replacement; tw2 - Immunization history:: Adult Immunizations. - Social history:: Smoking status: Patient denies any tobacco usage or history of. - Family history:: not pertinent. - Hospitalizations: : No recent hospitalization is reported. 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 Male : Normal genitalia with no discharge or lesions. left hemiscrotum with 2 punctate areas of dry blood, at bases of hair, no active bleeding, no testicular tenderness, no open wounds Vital Signs: 07:19 Pulse 64; Resp 17; Temp 97.9; Pulse Ox 100% on R/A; Weight 92.99 kg; Height 6 ft. 1 in. tw2 (185.42 cm); Pain 2/10; 07:24 BP 109 / 70; tw2 07:19 Body Mass Index 27.05 (92.99 kg, 185.42 cm) tw2 MDM: 07:41 Patient medically screened. rn 07:41 Differential diagnosis: bleeding from pore or base of hair. Data reviewed: vital signs, rn nurses notes, and as a result, I will discharge patient. Counseling: I had a detailed discussion with the patient and/or guardian regarding: the historical points, exam findings, and any diagnostic results supporting the discharge/admit diagnosis, the need for outpatient follow up, to return to the emergency department if symptoms worsen or persist or if there are any questions or concerns that arise at home. Response to treatment: the patient's symptoms have resolved after treatment, and as a result, I will discharge patient. Special discussion: I discussed with the patient/guardian in detail that at this point there is no indication for admission to the hospital. It is understood, however, that if the symptoms persist or worsen the patient needs to return immediately for re-evaluation. ED course: Stable vitals, bleeding stopped, no bleeding here, will dc home with f/u as needed, given return precautions and told to hold pressure by pinching scrotal skin if starts to bleed again. Told him if that doesn't stop bleeding then needs to come in for further eval and care. . Administered Medications: No medications were administered Disposition: 03/09/21 07:50 Discharged to Home. Impression: Spontaneous bleeding from scrotum. - Condition is Stable. - Medication Reconciliation Form, Thank You Letter, Antibiotic Education, Prescription Opioid Use, Work release form, Family Work Release form. - Follow up: Private Physician; When: As needed; Reason: Recheck today's complaints, Re-evaluation by your physician. - Problem is new. - Symptoms are resolved. Signatures: Duane James MD MD rn Wise, Tara, RN RN tw2 Corrections: (The following items were deleted from the chart) 07:58 07:50 03/09/2021 07:50 Discharged to Home. Impression: Spontaneous bleeding from tw2 scrotum. Condition is Stable. Forms are Work release form, Family Work Release, Medication Reconciliation Form, Thank You Letter, Antibiotic Education, Prescription Opioid Use. Follow up: Private Physician; When: As needed; Reason: Recheck today's complaints, Re-evaluation by your physician. Problem is new. Symptoms are resolved. rn
[2021-03-09 08:04] VITALS: TEMP 97.9; O2SAT 100
[2021-03-09 08:05] VITALS: BP 109/70
== END 2021-03-09 07:58 | disposition home or self-care (01) ==
LOC: ER 07:14
DX: R58 Hemorrhage, not elsewhere classified (principal); I10 Essential (primary) hypertension; K21.9 Gastro-esophageal reflux disease without esophagitis; Z79.82 Long term (current) use of aspirin; Z95.4 Presence of other heart-valve replacement
CPT/HCPCS: 99283